=== PATIENT | male | born 2005 | race Caucasian/White ===

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

== ENCOUNTER 2025-08-11 15:32 | Emergency (ER) | payer SELFPAY ==
--- OUTSIDE RECORDS SUMMARY | 2025-08-11 15:34 | XMS_ITS | Clinical Summary ---
Author Organization [facility] [place] Address [address] [place] [address] Care Team Providers Care [employer] Associate Name Role Phone Lynette Hinton MD Primary Care Provider [phone] Social History Tobacco Use Types Packs/Day Years Used Date Smoking Tobacco: Never Assessed Personal Safety Answer Date Recorded Getting School Help Needed Not on file 01/15 Sex and Gender Information Value Date Recorded Sex Assigned at Not on file Legal Sex Male 8:07 AM CDT Gender Identity Not on file Sexual Orientation Not on file Plan of Treatment Health Maintenance Due Date Last Done Comments Depression Screening 2005 Varicella Vaccines (1 of 2 - 13+ 2-dose series) 2018 Meningococcal B Vaccine (1 o f 2 - Standard) 2021 Regular Well Visit/Exam 18-64 2023 Covid-19 Vaccine (2024-2 6 season) 2025 12/10/2021, 05/01/2021, 04/10/2021 Influenza Vaccine (#1) 2025 DTaP/Tdap/Td Vaccine (2 - Td or Tdap) 06/08/2026 06/08/2016 HPV Vaccines Completed 07/29/2020, 05/26/2019 Meningococcal Vaccine Completed 06/18/2021 , 06/08/2016 Hepatitis B Screening Completed 02/07/2024 , 2005, 2005 Hepatitis C Screening Completed 02/07/2024 Pneumococcal vaccine <65 Aged Out No longer eligible based on patient's age to complete this topic Procedures Procedure Name Priority Date/Time Associated Diagnosis Comments HEPATITIS C ANTIBODY Routine 02/07/2024 7:59 AM CDT from Last 3 Months or Most Recently Relevant to Health Maintenance Results * Hepatitis C antibody Blood (02/07/2024 7:59 AM CDT) Hep C Ab Nonreactive Nonreactive Comment: Antibodies to HCV not detected. Does NOT exclude the possibility of recent exposure to HCV. Current interpretive data was last revised on 22 Interpretive Data Nonreactive: Antibodies to HCV not detected. Does NOT exclude the possibility of recent exposure to HCV. Equivocal: Equivocal for HCV antibodies. Supplemental molecular testing will be automatically performed to determine infection status in accordance with current CDC screening recommendations. Reactive: Positive for HCV antibodies. This may represent current or past HCV infection. Supplemental molecular testing will be automatically performed to determine current infection status in accordance with current CDC screening recommendations. Interpretive data was last revised on 2020. Blood 02/07/2024 7:59 AM CDT 02/07/2024 12:46 PM CDT Lynette Hinton MD LAB MICROBIOLOGY - GENERAL ORDER AIDAN Edited Result - Final [facility] [address] [facility] Department [place] [address] from Last 3 Months or Most Recently Relevant to Health Maintenance Insurance [employer] OPEN ACCESS Care Teams M[employer] Ac[employer] Associate Relationship Specialty Start Date End Date Lynette Hinton MD [address] [place] [address] PCP - General Psychiatry 06/28/23
[2025-08-11 15:37] VITALS: BP 144/105; PULSE 135; RESP 18; TEMP 37.2; O2SAT 100
--- NOTE | 2025-08-11 15:41 | ECG_ITS ---
Test Date: 2025-08-11 15:47:20 Measurements Intervals [place] Rate: 98 P: 74 LA: 154 QRS: 64 QRSD: 90 T: 35 QT: 319 QTc: 407 Interpretive Statements SINUS RHYTHM Electronically Signed On 08-12-2025 20:45:32 CDT by Allan Moss D.O
--- NOTE | 2025-08-11 16:58 | ED.GENADULT ---
HPI - General Adult General Chief complaint: Unspecified Stated complaint: fentanyl withdrawl Time Seen by Provider: 08/11/25 16:31 Source: patient, RN notes reviewed and old records reviewed Mode of arrival: ambulatory Limitations: no limitations History of Present Illness HPI narrative: This is a 20 year old male who presents for evaluation of fentanyl withdrawal. He states that he has been using fentanyl daily for the past 2 months. HE has been in drug treatment before. His last use was 15 hours ago and he reports he is having withdrawal symptoms. He states that he is cold and hot sweats, tremors and body aches. He denies nausea and vomiting. He states that he wants to stop using fentanyl so he told his mother he want to come to hospital. She states she did not know how to get him help for treatment. Related Data Allergies Allergy/AdvReac Type Severity Reaction Status Date / Time No Known Allergies Allergy Verified 08/11/25 15:35 PMFSH Past Medical History Medical History Opioid abuse, in remission Substance use disorder Smoker Social History Social History Smoking status: Current some day smoker Tobacco type: e-cigarettes/vaping Alcohol intake: never Substance use type: does not use Other substance usage details: ON OCCASION Living arrangements: with family Spiritual care concerns: No Exam Narrative: GENERAL: Well-appearing, well-nourished, and in no acute distress. HEAD: Normocephalic, atraumatic EYES: PERRLA and EOMI, conjunctiva clear without discharge EARS: TM's clear bilaterally without erythema or dullness NOSE: Nares clear, no rhinorrhea or epistaxis THROAT:Mucous membranes moist, Oropharynx normal without erythema, exudate, peritonsillar swelling or fluctuance NECK: Supple, without lymphadenopathy or mass RESPIRATORY: No respiratory distress, Airway patent, Respirations non-labored, Clear to auscultation without rales, rhonchi or wheeze HEART: Regular rate and rhythm. No murmur heard. Normal peripheral pulses. ABDOMEN: Soft, nontender, nondistended, normal active bowel sounds. No masses. No rebound or guarding, No organomegaly. EXTREMITIES: No edema, normal strength with full range of motion. SKIN: Warm, dry, normal color without rash NEURO: Alert and oriented x3. CN 2-12 grossly intact. No focal deficits. PSYCH: Normal mood and affect. Course Reevaluation(s) Reevaluation #1: Patient reports symptoms improved. I gave him information for drug treatment. He will call again to [facility]. Family at bedside. Date: 08/11/25 Time: 19:26 Vital Signs Vital signs: Vital Signs Temperature 98.9 F 08/11/25 15:37 Pulse Rate 135 H 08/11/25 15:37 Respiratory Rate 18 08/11/25 15:37 Blood Pressure 144/105 H 08/11/25 15:37 Pulse Oximetry 100 08/11/25 15:37 Temperature 98.9 F 08/11/25 15:37 Pulse Rate 85 08/11/25 18:19 Respiratory Rate 12 08/11/25 18:19 Blood Pressure 141/73 H 08/11/25 18:19 Pulse Oximetry 100 08/11/25 18:19 Medical Decision Making Vital Signs Vital Signs: Vital Signs Temperature 98.9 F 08/11/25 15:37 Pulse Rate 135 H 08/11/25 15:37 Respiratory Rate 18 08/11/25 15:37 Blood Pressure 144/105 H 08/11/25 15:37 Pulse Oximetry 100 08/11/25 15:37 Temperature 98.9 F 08/11/25 15:37 Pulse Rate 85 08/11/25 18:19 Respiratory Rate 12 08/11/25 18:19 Blood Pressure 141/73 H 08/11/25 18:19 Pulse Oximetry 100 08/11/25 18:19 Lab Data Lab results reviewed: Yes I reviewed the patient's lab results. 08/11/25 17:04 08/11/25 17:04 Labs: Lab Results 08/11/25 Range/Units 17:04 WBC 10.4 H (4.5-10.0) K/mm3 RBC 4.89 (4.6-6.20) M/mm3 Hgb 14.6 (14.0-18.0) g/dL Hct 42.3 (42.0-52.0) % MCV 86.5 (80-100) fl MCH 29.9 (26-34) pg MCHC 34.5 (32-36) g/dl RDW 11.8 (11.5-14.5) % Plt Count 359 D (150-375) k/mm3 MPV 9.9 (7.4-10.4) fl Immature Gran % (Auto) 0.4 (0-0.5) % Neut % (Auto) 84.6 H (45.5-73.1) % Lymph % (Auto) 10.2 L (18.3-44.2) % Gentry % (Auto) 4.2 (2.6-8.5) % Eos % (Auto) 0.1 (0-4.4) % Baso % (Auto) 0.5 (0.2-1.2) % Lymph # (Auto) 1.06 (0.9-3.2) K/mm3 Gentry # (Auto) 0.4 (0.1-0.6) K/mm3 Eos # (Auto) 0.0 (0-0.3) K/mm3 Baso # (Auto) 0.1 (0.0-0.1) K/mm3 Abs Immat Gran (auto) 0.04 H (0.00-0.031) K/mm3 Absolute Neuts (auto) 8.8 H (1.3-6.7) K/mm3 Absolute Nucleated RBC 0.000 (0.0-0.012) K/mm3 Nucleated RBC % 0.0 (0.0-0.2) % Sodium 141 (137-145) mmol/L Potassium 4.5 (3.4-5.0) mmol/L Chloride 105 (98-107) mmol/L Carbon Dioxide 27 (22-30) mmol/L Anion Gap 9 (4-12) mmol/L BUN 18 (9-20) mg/dL Creatinine 0.87 (0.7-1.3) mg/dL Estim Creat Clear Calc 107 ml/min Estimated GFR > 60 (59 - ) Glucose 117 H (65-110) mg/dL Calcium 9.6 (8.4-10.2) mg/dL Total Bilirubin 0.4 (0.2-1.3) mg/dL AST 26 (17-59) U/L ALT 21 (6-50) U/L Alkaline Phosphatase 78 (38-126) U/L Total Protein 7.8 (6.3-8.2) g/dL Albumin 4.8 (3.5-5.1) g/dL Urine Color Yellow (Yellow) Urine Appearance Clear (Clear) Urine pH 6.5 (5.0-9.0) Ur Specific Pisek 1.021 (1.001-1.035) Urine Protein Negative (Negative) mg/dL Urine Glucose (UA) Negative (Negative) mg/dL Urine Ketones Negative (Negative) mg/dL Ur Blood (Man) Negative (Negative) Urine Nitrate Negative (Negative) Urine Bilirubin Negative (Negative) Urine Urobilinogen 0.2 (<2.0) mg/dL Leukocyte Esterase Rfl Negative (Negative) WILLIAN/UL Urine Opiates Screen Negative (Negative) Urine Methadone Screen Negative (Negative) Ur Barbiturates Screen Negative (Negative) Ur Phencyclidine Scrn Negative (Negative) Ur Amphetamine Screen Negative (Negative) U Benzodiazepines Scrn Negative (Negative) Urine Cocaine Screen Negative (Negative) U Cannabinoids Screen Positive A (Negative) Discharge Plan Discharge Clinical Impression: Opioid dependence with withdrawal Patient Disposition: Home Condition: Stable Instructions: Antibiotic Form, Narcotic Withdrawal (ED) Additional Instructions: I have prescribed 3 day supply of medication for your withdrawal. Do not take this medication if you are going to use drugs. Follow up with resources for drug treatment. Call [facility] on Wednesday Patient Language: Korean Prescriptions: New buprenorphine HCl 2 mg tablet, sublingual 4 mg sublingual DAILY Qty: 6 0RF No Action prednisone 10 mg tablet 10 mg PO DIRECTED Qty: 45 0RF Rx Instructions: 50 mg by mouth daily for 3 days, 40 mg by mouth daily for 3 days , 30 mg by mouth daily for 3 days, 20 mg by mouth daily for 3 days, 10 mg by mouth daily for 3 days, then stop. Follow-up/Referrals: Alan Elise MD [Primary Care Provider, [facility]]
[2025-08-11] MEDS: BUPRENORPHINE HCL (*CRX) 2 MG SUBLINGUAL TABLET SUBLINGUAL ×2 (17:03→17:57)
[2025-08-11 17:16] LABS: Hematocrit 42.3 % (42.0-52.0); Hemoglobin 14.6 g/dL (14.0-18.0); Immature Granulocyte Percent A 0.4 % (0-0.5); Lymphocytes Absolute Auto 1.06 K/mm3 (0.9-3.2); Mean Corpuscular HGB Conc 34.5 g/dl (32-36); Mean Corpuscular Hemoglobin 29.9 pg (26-34); Mean Corpuscular Volume 86.5 fl (80-100); Nucleated Red Blood Cells Absolute Auto 0.000 K/mm3 (0.0-0.012); Nucleated Red Blood Cells Perc 0.0 % (0.0-0.2); Platelet Count Result 359 k/mm3 (150-375); Red Blood Count 4.89 M/mm3 (4.6-6.20); White Blood Count 10.4 K/mm3 (4.5-10.0)
[2025-08-11] MEDS: LACTATED RINGERS 1,000 ML 999 ML IV CONT (17:22)
[2025-08-11 17:23] LABS: Add Urine Microscopic? NO; Appearance Urine Clear (Clear); Glucose Urine UA Negative (Negative); Leukocyte Esterase Ur Negative LEU/UL (Negative); Nitrate Urine Negative (Negative); Specific Grav Ur 1.021 (1.001-1.035)
--- OUTSIDE RECORDS SUMMARY | 2025-08-11 17:24 | XMS_ITS | Clinical Summary ---
Author Organization [facility] [place] Address [address] [place] [address] Care Team Providers Care Group Work Program Aide Name Role Phone Lynette Hinton MD Primary Care Provider [phone] Social History Tobacco Use Types Packs/Day Years [...] GENERAL ORDER AIDAN Edited Result - Final [facility] [address] [facility] Department [place] [address] from Last 3 Months or Most Recently Relevant to Health Maintenance Insurance [employer] OPEN ACCESS Care Teams Group Work Program Aide Relationship Specialty Start Date End Date Lynette Hinton MD [address] [place] [address] PCP - General Psychiatry 06/28/23
--- OUTSIDE RECORDS SUMMARY | 2025-08-11 17:24 | XMS_ITS | Clinical Summary ---
Author Organization [facility] Address [address] [place] [id number] Care Team Providers Care [employer] Name Role Phone Unavailable Primary Care Provider Unavailabl e Immunizations Immunization Administration Dates Next Due Covid-19, Mrna, Lnp-s, Pf, 30 Mcg/0.3 Ml Dose (P fizer) 12/10/2021 Social History Tobacco Use Types Packs/Day Years Used Date Smoking Tobacco: Never Assessed Sex and Gender Information Value Date Recorded Sex Assigned at Not on file Legal Sex Male 1:47 PM [employer] Gender Identity Not on file Sexual Orientation Not on file Plan of Treatment Health Maintenance Due Date Last Done Comments Hepatitis C Virus (HCV) Screening 2005 Hepatitis B Immunization (3 of 3 - 3-dose series) 2005 2005, 2005 Meningococcal B Immunization (1 of 2 - Standard) 2021 SARS-COV-2 Immunization (4 - season) 2024 12/10/2021, 05/01/2021, 04/10/2021 Influenza Immunization (#1) 2025 Respiratory Syncytial Virus (RSV) Immunization (Adult) (1 - 1-dose 75+ series) 2080 DTaP/Tdap/Td Immunization Discontinued 06/08/2016 TdaP Immunization Completed 06/08/2016 Human Papillomavirus (HPV) Immunization Completed 07/29/2020, 05/26/2019 Meningococcal Immunization (ACWY) Completed 06/18/2021, 06/08/2016 Pneumococcal Immunization Combined Aged Out No longer eligible based on patient's age to complete this topic Rotavirus Immunization Aged Out No lo nger eligible based on patient's age to complete this topic
[2025-08-11 17:36] LABS: Alanine Aminotransferase 21 U/L (6-50); Albumin Level 4.8 g/dL (3.5-5.1); Alkaline Phosphatase 78 U/L (38-126); Anion Gap 9 mmol/L (4-12); Aspartate Amino Transferase 26 U/L (17-59); Bilirubin,Total 0.4 mg/dL (0.2-1.3); Blood Urea Nitrogen 18 mg/dL (9-20); Calcium 9.6 mg/dL (8.4-10.2); Carbon Dioxide 27 mmol/L (22-30); Chloride 105 mmol/L (98-107); Estimated CRCL calculation 107 ml/min; Estimated Glomerular Filt Rate > 60; Glucose 117 mg/dL (65-110); Potassium 4.5 mmol/L (3.4-5.0); Sodium 141 mmol/L (137-145); Total Protein 7.8 g/dL (6.3-8.2)
[2025-08-11 17:43] LABS: Cannabinoid Screen Urine Positive (Negative)
[2025-08-11 18:19] VITALS: BP 141/73; PULSE 85; RESP 12; O2SAT 100
[2025-08-11 19:45] VITALS: BP 129/73; PULSE 73; RESP 13; TEMP 36.8; O2SAT 100
--- NOTE | 2025-08-11 19:52 | PC.NURSE ---
received report from JAY Pendleton for cont. of care. Pt ambulatory to bathroom wth steady gait, pt denies pain and/or discomfort at this time. VS WNL
== END 2025-08-11 20:06 | disposition home or self-care (01) ==
PROVIDERS: Emergency Provider General Practice; PCP Family Medicine
DX: F11.23 Opioid dependence with withdrawal (principal); F17.290 Nicotine dependence, other tobacco product, uncomplicated
CPT/HCPCS: 36415; 80053; 80307; 81003; 85025; 93005; 96360; 99284; A9270; J7120